=== PATIENT | male | born 1995 | race Two or more races ===

== ENCOUNTER 2023-09-26 17:06 | Emergency (ER) | payer OTHER ==
[~2023-09-26] VITALS: Ht 172.7 cm; Wt 68.2 kg
[2023-09-26 17:15] VITALS: BP 129/73; PULSE 62; RESP 16; TEMP 98.1
== END 2023-09-26 17:39 | disposition home or self-care (01) ==
LOC: EMS 17:09
DX: S91.311A Laceration without foreign body, right foot, initial encounter (principal); W26.8XXA Contact with other sharp object(s), not elsewhere classified, initial encounter; Y93.89 Activity, other specified; Y92.89 Other specified places as the place of occurrence of the external cause; Y99.8 Other external cause status
CPT/HCPCS: 12001; 99282; Z7502